=== PATIENT | male | born 1945 | race Caucasian/White ===

== ENCOUNTER 2023-10-06 02:33 | Inpatient (IN) | payer BC, MEDICAID ==
[2023-10-06] VITALS (17 sets, daily range): BP systolic 123–140; BP diastolic 71–90; PULSE 76–100; RESP 12–20; TEMP 96.8–98; O2SAT 90–99
[~2023-10-06] VITALS: Ht 177.8 cm; Wt 62.2 kg
[2023-10-06] MEDS: ipratropium/albuterol 3ml nebule NEB SCH (01:00)
[2023-10-06] MEDS ORDERED: heparin 10,000 units/1 ML INJ IV PRN (02:45)
[2023-10-06] MEDS ORDERED: heparin 25,000 UNIT/250ml bag 250 ML IV PRN (02:45)
[2023-10-06 03:15] LABS: ABG BASE EXCESS -8.4 mmol/L (-2.0-2.0); ABG HCO3 17.1 mmol/L (22.0-26.0); ABG OXYGEN SATURATION 98.7 % (94-97); ABG PCO2 (T) 35.5 mmHg (35.0-48.0); ABG PH (T) 7.299 (7.340-7.440); ABG PO2 (T) 159.7 mmHg (75.0-100.0); ALLEN'S TEST POSITIVE; FCOHb 0.5 % (0.0-3.9); FHHb 1.3 % (0.0-5.0); FMetHb 0.4 % (0.0-1.5); FO2Hb 97.8 % (94-97); PATIENT TEMPERATURE 36.7; RESPIRATORY RATE 15 b/min; TOTAL HEMOGLOBIN 16.1 G/dl (14.0-17.9)
[2023-10-06 03:53] LABS: BASOPHILS % (AUTO) 0.6 % (0-1); EOSINOPHILS % (AUTO) 0.1 % (0-6); HEMATOCRIT 47.7 % (42.0-52.0); HEMOGLOBIN 15.6 g/dl (14.0-17.9); LYMPHOCYTES # (AUTO) 0.2 X10'3 (1.1-4.8); LYMPHOCYTES % (AUTO) 4.5 % (21-51); MEAN CORPUSCULAR HEMOGLOBIN 34.2 PG (27.0-31.0); MEAN CORPUSCULAR HGB CONC 32.6 g/dL (33.0-36.5); MEAN CORPUSCULAR VOLUME 105.1 FL (78-98); MEAN PLATELET VOLUME 9.2 FL (7.4-10.4); MONOCYTES # (AUTO) 0.4 X10'3 (0-0.9); MONOCYTES % (AUTO) 7.7 % (2-12); NEUTROPHILS # (AUTO) 4.4 X10'3 (1.8-7.7); NEUTROPHILS % (AUTO) 87.1 % (42-75); PLATELET COUNT 64 X10'3 (140-440); RED BLOOD COUNT 4.54 X10'6 (4.70-6.10); RED CELL DISTRIBUTION WIDTH 16.8 % (11.5-14.5); WHITE BLOOD COUNT 5.1 X10'3 (4.5-11.0)
[2023-10-06] MEDS ORDERED: albuterol 2.5 MG/3 ML nebule NEB PRN (04:05)
[2023-10-06] MEDS ORDERED: acetaminophen 325mg tablet PO PRN ×2 (04:05)
[2023-10-06] MEDS ORDERED: morphine 4 MG/ML inj SYRINge IV PRN (04:05)
[2023-10-06] MEDS ORDERED: morphine 2 MG/ML inj. syringe IV PRN (04:05)
[2023-10-06] MEDS ORDERED: ondansetron/PF 4mg/2ml inj IV PRN (04:05)
[2023-10-06] MEDS ORDERED: ipratropium/albuterol 3ml nebule NEB PRN (04:05)
[2023-10-06 04:17] LABS: ALBUMIN 3.2 G/DL (3.4-5.0); ALBUMIN/GLOBULIN RATIO 0.9 (1.1-1.5); ALKALINE PHOSPHATASE 188 IU/L (46-116); ANION GAP 13 (8-16); BILIRUBIN,TOTAL 2.4 MG/DL (0.1-1.0); BLOOD UREA NITROGEN 71 MG/DL (7-18); BUN/CREATININE RATIO 36.6 (10.0-20.0); CALCIUM 8.4 MG/DL (8.5-10.1); CHLORIDE 101 MMOL/L (99-107); CREATININE 1.94 MG/DL (0.60-1.10); GLUCOSE 174 MG/DL (70-104); POTASSIUM 5.1 MMOL/L (3.5-5.1); SODIUM 137 MMOL/L (135-145); TOTAL PROTEIN 6.9 G/DL (6.4-8.2); eCRCL 30 ML/MIN; eGFR 33 ML/MIN
[2023-10-06] MEDS: LidoCAINE 2% Topical Jelly 11mL syringe (UROJET) TOP ONE (04:21)
[2023-10-06 04:32] LABS: BILIRUBIN,URINE NEGATIVE (Neg); CLARITY,URINE SLIGHTLY CLOUDY (Clear); COLOR,URINE YELLOW (Yellow); GLUCOSE, URINE NEGATIVE (Neg); KETONES,URINE NEGATIVE (Neg); LEUKOCYTE ESTERASE ,URINE TRACE (Neg); NITRITES, URINE POSITIVE (Neg); OCCULT BLOOD,URINE MODERATE (Neg); PROTEIN,URINE NEGATIVE (Neg); UROBILINOGEN,URINE 0.2 E.U/dL (0.2-1.0)
[2023-10-06 04:34] LABS: UA COLLECTION TYPE NON-SPECIFIED
[2023-10-06 04:37] LABS: ALANINE AMINOTRANSFERASE 2113 U/L (12-78)
[2023-10-06 04:39] LABS: BACTERIA,URINE FEW /HPF (Neg)
[2023-10-06 04:40] LABS: FINE GRANULAR CAST 0-3 /LPF (NEGATIVE); HYALINE CASTS >30 /LPF (NEGATIVE); MUCUS STRANDS FEW /LPF (Neg); SQUAMOUS EPITHELIAL CELL,UR FEW /LPF (FEW); TRANSITIONAL EPI CELLS,URINE FEW /HPF
[2023-10-06 04:58] LABS: ASPARTATE AMINO TRANSFERASE 2050 U/L (10-37)
[2023-10-06 05:03] LABS: PRO BRAIN NATRIURETIC PEPTIDE > 30000 PG/ML (0-450)
[2023-10-06] MEDS: MESSAGE TO NURSING IV ONE ×3 (06:50→09:06)
[2023-10-06] MEDS: famotidine/PF 10 mg/ml inj IV SCH (08:13)
[2023-10-06] MEDS: PERFLUTREN PROTEIN-A MICROSPHR (Optison) 0.22 MG/ML 3ML VIAL IV ONE (09:06)
[2023-10-06] MEDS: CefTRIAXone/D5W-Rocephin 1gm 50 ML IV SCH (09:45)
[2023-10-06] MEDS ORDERED: ATOR40TA PO (13:09)
[2023-10-06] MEDS ORDERED: PRED5DRO23 RIGHTEYE (13:09)
[2023-10-06] MEDS ORDERED: CARVEDILOL PO (13:09)
[2023-10-06] MEDS ORDERED: FURO-150 PO (13:09)
[2023-10-06] MEDS ORDERED: LISINOPRIL 2.5 MG PO (13:09)
[2023-10-06] MEDS: DOBUTamine-DoBUTrex 500mg/D5W 250 ML IV SCH ×2 (13:45→19:05)
[2023-10-06 16:48] LABS: OSMOLALITY 318 MOSM/K (280-300)
[2023-10-06 16:58] LABS: D-DIMER 25.36 MG/L FEU (0-0.50)
[2023-10-06 17:04] LABS: C-REACTIVE PROTEIN 7.01 MG/DL (0.0-0.5); LIPASE 34 U/L (16-77); MAGNESIUM 2.5 MG/DL (1.5-2.4); PHOSPHORUS 5.2 MG/DL (2.3-4.5)
[2023-10-06 17:05] LABS: CREATINE KINASE 5346 U/L (39-308)
[2023-10-06] MEDS: methylPREDNISolone sod succ 125mg/2ml vial IV SCH (22:52)
[2023-10-06] MEDS: carVEDilol 3.125mg tablet PO SCH (22:52)
[2023-10-07] VITALS (26 sets, daily range): BP systolic 96–136; BP diastolic 61–90; PULSE 78–96; RESP 16–22; TEMP 96.9–98.1; O2SAT 91–98
[2023-10-07] MEDS: azithromycin/NS 500mg/250ml 250 ML IV SCH (08:37)
[2023-10-07] MEDS: famotidine/PF 10 mg/ml inj IV SCH (08:38)
[2023-10-07] MEDS: EMPAGLIFLOZIN 10 MG TABLET PO SCH (08:38)
[2023-10-07] MEDS: aspirin 81mg, enteric-coated 1 TAB TABLET.DR PO SCH (08:38)
[2023-10-07 08:39] LABS: LYMPHOCYTES # (AUTO) 0.1 X10'3 (1.1-4.8); NEUTROPHILS # (AUTO) 6.5 X10'3 (1.8-7.7)
[2023-10-07] MEDS: furosemide 40mg/4ml inj IV SCH (08:39)
[2023-10-07 08:41] LABS: BASOPHILS % (AUTO) 0 % (0-1); EOSINOPHILS % (AUTO) 0.1 % (0-6); HEMATOCRIT 42.1 % (42.0-52.0); LYMPHOCYTES % (AUTO) 1.8 % (21-51); MEAN CORPUSCULAR HEMOGLOBIN 34.1 PG (27.0-31.0); MEAN CORPUSCULAR HGB CONC 33.2 g/dL (33.0-36.5); MEAN CORPUSCULAR VOLUME 102.7 FL (78-98); MEAN PLATELET VOLUME 10.2 FL (7.4-10.4); MONOCYTES # (AUTO) 0.2 X10'3 (0-0.9); MONOCYTES % (AUTO) 2.5 % (2-12); NEUTROPHILS % (AUTO) 95.6 % (42-75); RED CELL DISTRIBUTION WIDTH 16.5 % (11.5-14.5); WHITE BLOOD COUNT 6.9 X10'3 (4.5-11.0)
[2023-10-07 08:50] LABS: ALBUMIN 2.7 G/DL (3.4-5.0); ANION GAP 6 (8-16); BLOOD UREA NITROGEN 65 MG/DL (7-18); BUN/CREATININE RATIO 41.9 (10.0-20.0); CALCIUM 8.3 MG/DL (8.5-10.1); CHLORIDE 104 MMOL/L (99-107); CREATININE 1.55 MG/DL (0.60-1.10); GLUCOSE 137 MG/DL (70-104); POTASSIUM 4.5 MMOL/L (3.5-5.1); SODIUM 138 MMOL/L (135-145); TOTAL CARBON DIOXIDE 27.9 MMOL/L (24-32); eCRCL 33 ML/MIN; eGFR 43 ML/MIN
[2023-10-07 09:00] LABS: PLATELET COUNT 46 X10'3 (140-440)
[2023-10-07 09:48] LABS: ANISOCYTOSIS 1+; PLATELET ESTIMATE DECREASED; TOTAL CELLS COUNTED 100; TOXIC VACUOLATION 1+
[2023-10-07 09:49] LABS: BURR CELLS 1+
[2023-10-07 09:50] LABS: ELLIPTOCYTES FEW
[2023-10-07 14:11] LABS: % IRON SATURATION 30 % (11-46); IRON 62 UG/DL (53-167); TOTAL IRON BINDING CAPACITY 208 UG/DL (259-388)
[2023-10-07 14:20] LABS: FERRITIN 955 NG/ML (26-388); PRO BRAIN NATRIURETIC PEPTIDE > 30000 PG/ML (0-450)
[2023-10-07] MEDS: sodium bicarbonate (8.4%) inj. 50 MEQ in dextrose 5%-water 1,000 ML IV SCH (17:11)
[2023-10-07] MEDS: lactose-reduced food (Ensure Enlive) - 237ml bottle PO SCH (18:00)
[2023-10-08] VITALS (19 sets, daily range): BP systolic 98–126; BP diastolic 66–87; PULSE 78–86; RESP 12–24; TEMP 97.3–98; O2SAT 92–99
[2023-10-08] MEDS: diazepam inj 5 MG/ML inj. IV PRN (02:11)
[2023-10-08 08:55] LABS: EOSINOPHILS % (AUTO) 0 % (0-6); HEMOGLOBIN 13.1 g/dl (14.0-17.9); MONOCYTES # (AUTO) 0.4 X10'3 (0-0.9); WHITE BLOOD COUNT 9.3 X10'3 (4.5-11.0)
[2023-10-08 08:57] LABS: BASOPHILS % (AUTO) 0.2 % (0-1); HEMATOCRIT 39.7 % (42.0-52.0); LYMPHOCYTES # (AUTO) 0.1 X10'3 (1.1-4.8); LYMPHOCYTES % (AUTO) 1.5 % (21-51); MEAN CORPUSCULAR HEMOGLOBIN 34.2 PG (27.0-31.0); MEAN CORPUSCULAR VOLUME 103.7 FL (78-98); MEAN PLATELET VOLUME 8.9 FL (7.4-10.4); NEUTROPHILS # (AUTO) 8.8 X10'3 (1.8-7.7); NEUTROPHILS % (AUTO) 94.3 % (42-75); RED BLOOD COUNT 3.83 X10'6 (4.70-6.10); RED CELL DISTRIBUTION WIDTH 16.4 % (11.5-14.5)
[2023-10-08 09:12] LABS: PLATELET COUNT 32 X10'3 (140-440)
[2023-10-08] MEDS: erythromycin ophthalmic ointment 1gm tube EACHEYE SCH (10:55)
[2023-10-08] MEDS: nicotine 21mg patch - 24 hr TD SCH (15:15)
[2023-10-09] VITALS (17 sets, daily range): BP systolic 101–129; BP diastolic 61–88; PULSE 76–86; RESP 16–25; TEMP 96.2–98.3; O2SAT 90–97
[2023-10-09 07:28] LABS: BASOPHILS % (AUTO) 0.1 % (0-1); EOSINOPHILS % (AUTO) 0 % (0-6); HEMATOCRIT 41.3 % (42.0-52.0); HEMOGLOBIN 13.6 g/dl (14.0-17.9); LYMPHOCYTES # (AUTO) 0.2 X10'3 (1.1-4.8); LYMPHOCYTES % (AUTO) 1.5 % (21-51); MEAN CORPUSCULAR HEMOGLOBIN 34.5 PG (27.0-31.0); MEAN CORPUSCULAR VOLUME 104.5 FL (78-98); MEAN PLATELET VOLUME 9.1 FL (7.4-10.4); MONOCYTES # (AUTO) 0.4 X10'3 (0-0.9); MONOCYTES % (AUTO) 3.5 % (2-12); NEUTROPHILS % (AUTO) 94.9 % (42-75); RED BLOOD COUNT 3.95 X10'6 (4.70-6.10); RED CELL DISTRIBUTION WIDTH 16.4 % (11.5-14.5); WHITE BLOOD COUNT 11.6 X10'3 (4.5-11.0)
[2023-10-09 08:01] LABS: ALBUMIN/GLOBULIN RATIO 0.6 (1.1-1.5); ALKALINE PHOSPHATASE 143 IU/L (46-116); ASPARTATE AMINO TRANSFERASE 416 U/L (10-37); BILIRUBIN,TOTAL 1.3 MG/DL (0.1-1.0); BLOOD UREA NITROGEN 42 MG/DL (7-18); BUN/CREATININE RATIO 43.8 (10.0-20.0); CALCIUM 7.7 MG/DL (8.5-10.1); CREATININE 0.96 MG/DL (0.60-1.10); GLUCOSE 94 MG/DL (70-104); TOTAL CARBON DIOXIDE 25.9 MMOL/L (24-32); TOTAL PROTEIN 5.4 G/DL (6.4-8.2); eCRCL 54 ML/MIN; eGFR 75 ML/MIN
[2023-10-09 08:17] LABS: ANION GAP 6 (8-16); CHLORIDE 102 MMOL/L (99-107); SODIUM 134 MMOL/L (135-145)
[2023-10-09 08:18] LABS: ALANINE AMINOTRANSFERASE 1107 U/L (12-78); POTASSIUM 4.3 MMOL/L (3.5-5.1)
[2023-10-09 08:21] LABS: PLATELET COUNT 26 X10'3 (140-440)
[2023-10-09 10:16] LABS: CREATINE KINASE 752 U/L (39-308)
[2023-10-09 13:47] LABS: D-DIMER 17.45 MG/L FEU (0-0.50); FIBRINOGEN 67 MG/DL (177-424)
[2023-10-09] MEDS: furosemide 40mg/4ml inj IV ONE (18:12)
[2023-10-09 18:14] LABS: ABSOLUTE RETICS # 56700 /CUMM (23000-93000); RETICULOCYTE % (AUTO) 1.4 % (0.5-1.5)
[2023-10-09 19:01] LABS: HIV ANTIBODY 1&2 RAPID NON-REACTIVE (Neg)
[2023-10-09] MEDS: furosemide 20 MG/2 ML vial IV ONE (20:20)
[2023-10-10] VITALS (21 sets, daily range): BP systolic 99–131; BP diastolic 58–85; PULSE 73–93; RESP 12–24; TEMP 97.4–98.2; O2SAT 91–99
[2023-10-10 08:57] LABS: BASOPHILS % (AUTO) 0.1 % (0-1); EOSINOPHILS % (AUTO) 0 % (0-6); HEMATOCRIT 39.7 % (42.0-52.0); HEMOGLOBIN 13.2 g/dl (14.0-17.9); LYMPHOCYTES # (AUTO) 0.1 X10'3 (1.1-4.8); MEAN CORPUSCULAR HEMOGLOBIN 34.1 PG (27.0-31.0); MEAN CORPUSCULAR HGB CONC 33.2 g/dL (33.0-36.5); MEAN CORPUSCULAR VOLUME 102.7 FL (78-98); MEAN PLATELET VOLUME 9.8 FL (7.4-10.4); MONOCYTES # (AUTO) 0.4 X10'3 (0-0.9); MONOCYTES % (AUTO) 3.4 % (2-12); NEUTROPHILS # (AUTO) 11.4 X10'3 (1.8-7.7); NEUTROPHILS % (AUTO) 95.5 % (42-75); RED BLOOD COUNT 3.86 X10'6 (4.70-6.10); RED CELL DISTRIBUTION WIDTH 16.4 % (11.5-14.5); WHITE BLOOD COUNT 11.9 X10'3 (4.5-11.0)
[2023-10-10 09:00] LABS: PLATELET COUNT 33 X10'3 (140-440)
[2023-10-10 09:27] LABS: ALANINE AMINOTRANSFERASE 947 U/L (12-78); ALBUMIN 2.3 G/DL (3.4-5.0); ALBUMIN/GLOBULIN RATIO 0.7 (1.1-1.5); ALKALINE PHOSPHATASE 169 IU/L (46-116); ANION GAP 3 (8-16); ASPARTATE AMINO TRANSFERASE 297 U/L (10-37); BILIRUBIN,TOTAL 1.1 MG/DL (0.1-1.0); BLOOD UREA NITROGEN 42 MG/DL (7-18); BUN/CREATININE RATIO 37.8 (10.0-20.0); CALCIUM 8.1 MG/DL (8.5-10.1); CHLORIDE 103 MMOL/L (99-107); CREATININE 1.11 MG/DL (0.60-1.10); GLUCOSE 109 MG/DL (70-104); POTASSIUM 4.3 MMOL/L (3.5-5.1); PRO BRAIN NATRIURETIC PEPTIDE 15177 PG/ML (0-450); SODIUM 138 MMOL/L (135-145); TOTAL CARBON DIOXIDE 31.7 MMOL/L (24-32); TOTAL PROTEIN 5.4 G/DL (6.4-8.2); eCRCL 47 ML/MIN; eGFR 64 ML/MIN
[2023-10-10 09:34] LABS: ANISOCYTOSIS 1+; PLATELET ESTIMATE DECREASED
[2023-10-10] MEDS: magnesium hydroxide 30ml (MOM) UD suspension PO PRN (09:53)
[2023-10-10] MEDS: furosemide 20 MG/2 ML vial IV SCH (09:54)
[2023-10-10] MEDS: famotidine 20mg tablet PO SCH (09:54)
[2023-10-10 19:16] LABS: HEP A AB, IGM Negative (Negative); HEP B CORE AB, IGM Negative (Negative); HEP B CORE AB, TOT Negative (Negative); HEPATITIS C VIRUS ANTIBODY Non Reactive (Non Reactive)
[2023-10-11] VITALS (19 sets, daily range): BP systolic 120–140; BP diastolic 70–91; PULSE 82–96; RESP 16–24; TEMP 97.3–98.5; O2SAT 92–98
[2023-10-11 19:39] LABS: BASOPHILS % (AUTO) 0.2 % (0-1); EOSINOPHILS % (AUTO) 0 % (0-6); HEMATOCRIT 44.1 % (42.0-52.0); HEMOGLOBIN 14.4 g/dl (14.0-17.9); LYMPHOCYTES # (AUTO) 0.1 X10'3 (1.1-4.8); LYMPHOCYTES % (AUTO) 1.1 % (21-51); MEAN CORPUSCULAR HEMOGLOBIN 34.2 PG (27.0-31.0); MEAN CORPUSCULAR HGB CONC 32.7 g/dL (33.0-36.5); MEAN CORPUSCULAR VOLUME 104.5 FL (78-98); MEAN PLATELET VOLUME 9.9 FL (7.4-10.4); MONOCYTES # (AUTO) 0.5 X10'3 (0-0.9); MONOCYTES % (AUTO) 3.5 % (2-12); NEUTROPHILS # (AUTO) 13.2 X10'3 (1.8-7.7); NEUTROPHILS % (AUTO) 95.2 % (42-75); RED BLOOD COUNT 4.22 X10'6 (4.70-6.10); RED CELL DISTRIBUTION WIDTH 16.5 % (11.5-14.5); WHITE BLOOD COUNT 13.8 X10'3 (4.5-11.0)
[2023-10-11 19:44] LABS: PLATELET COUNT 40 X10'3 (140-440)
[2023-10-11 19:48] LABS: INR 1.3 INR; PROTHROMBIN TIME 13.6 SECONDS (9.0-12.0)
[2023-10-11 19:58] LABS: ALANINE AMINOTRANSFERASE 783 U/L (12-78); ALBUMIN 2.6 G/DL (3.4-5.0); ALBUMIN/GLOBULIN RATIO 0.8 (1.1-1.5); ALKALINE PHOSPHATASE 165 IU/L (46-116); ANION GAP 5 (8-16); ASPARTATE AMINO TRANSFERASE 161 U/L (10-37); BLOOD UREA NITROGEN 47 MG/DL (7-18); BUN/CREATININE RATIO 46.5 (10.0-20.0); CALCIUM 8.6 MG/DL (8.5-10.1); CHLORIDE 102 MMOL/L (99-107); CREATININE 1.01 MG/DL (0.60-1.10); GLUCOSE 135 MG/DL (70-104); MAGNESIUM 2.6 MG/DL (1.5-2.4); PHOSPHORUS 1.9 MG/DL (2.3-4.5); POTASSIUM 4.5 MMOL/L (3.5-5.1); SODIUM 142 MMOL/L (135-145); eCRCL 51 ML/MIN; eGFR 71 ML/MIN
[2023-10-11] MEDS: docusate sod 100mg capsule PO ONE (20:30)
[2023-10-11] MEDS: sennosides/docusate sodium tablet PO ONE (20:30)
[2023-10-12] VITALS (21 sets, daily range): BP systolic 127–140; BP diastolic 70–94; PULSE 83–98; RESP 15–26; TEMP 97.4–98.2; O2SAT 91–99
[2023-10-12 05:57] LABS: BASOPHILS % (AUTO) 0.1 % (0-1); EOSINOPHILS % (AUTO) 0 % (0-6); HEMATOCRIT 40.3 % (42.0-52.0); HEMOGLOBIN 13.4 g/dl (14.0-17.9); LYMPHOCYTES # (AUTO) 0.2 X10'3 (1.1-4.8); LYMPHOCYTES % (AUTO) 1.5 % (21-51); MEAN CORPUSCULAR HEMOGLOBIN 34.5 PG (27.0-31.0); MEAN CORPUSCULAR HGB CONC 33.3 g/dL (33.0-36.5); MEAN CORPUSCULAR VOLUME 103.5 FL (78-98); MEAN PLATELET VOLUME 10.2 FL (7.4-10.4); MONOCYTES # (AUTO) 0.8 X10'3 (0-0.9); MONOCYTES % (AUTO) 6.7 % (2-12); NEUTROPHILS # (AUTO) 10.6 X10'3 (1.8-7.7); NEUTROPHILS % (AUTO) 91.7 % (42-75); RED BLOOD COUNT 3.89 X10'6 (4.70-6.10); WHITE BLOOD COUNT 11.5 X10'3 (4.5-11.0)
[2023-10-12 06:01] LABS: PLATELET COUNT 42 X10'3 (140-440)
[2023-10-12 06:15] LABS: ALANINE AMINOTRANSFERASE 667 U/L (12-78); ALBUMIN 2.3 G/DL (3.4-5.0); ALBUMIN/GLOBULIN RATIO 0.7 (1.1-1.5); ALKALINE PHOSPHATASE 172 IU/L (46-116); ANION GAP 1 (8-16); ASPARTATE AMINO TRANSFERASE 130 U/L (10-37); BILIRUBIN,TOTAL 1.1 MG/DL (0.1-1.0); BLOOD UREA NITROGEN 49 MG/DL (7-18); BUN/CREATININE RATIO 49.5 (10.0-20.0); CALCIUM 8.4 MG/DL (8.5-10.1); CHLORIDE 103 MMOL/L (99-107); CREATININE 0.99 MG/DL (0.60-1.10); GLUCOSE 120 MG/DL (70-104); POTASSIUM 4.3 MMOL/L (3.5-5.1); SODIUM 140 MMOL/L (135-145); TOTAL CARBON DIOXIDE 35.8 MMOL/L (24-32); TOTAL PROTEIN 5.4 G/DL (6.4-8.2); eCRCL 52 ML/MIN; eGFR 73 ML/MIN
[2023-10-12] MEDS: losartan 25mg tablet PO SCH (16:14)
[2023-10-12] MEDS ORDERED: carVEDilol 3.125mg tablet PO SCH (20:00)
[2023-10-12] MEDS: sennosides/docusate sodium tablet PO ONE (20:51)
[2023-10-12] MEDS: docusate sod 100mg capsule PO ONE (20:51)
[2023-10-13] VITALS (9 sets, daily range): BP systolic 130–160; BP diastolic 77–94; PULSE 79–94; RESP 16–20; TEMP 97.5; O2SAT 96–97
[2023-10-13 06:27] LABS: BASOPHILS % (AUTO) 0.1 % (0-1); EOSINOPHILS # (AUTO) 0.1 X10'3 (0-0.9); EOSINOPHILS % (AUTO) 0.9 % (0-6); HEMATOCRIT 44.4 % (42.0-52.0); HEMOGLOBIN 14.8 g/dl (14.0-17.9); LYMPHOCYTES # (AUTO) 0.5 X10'3 (1.1-4.8); LYMPHOCYTES % (AUTO) 7.5 % (21-51); MEAN CORPUSCULAR HEMOGLOBIN 34.8 PG (27.0-31.0); MEAN CORPUSCULAR HGB CONC 33.3 g/dL (33.0-36.5); MEAN CORPUSCULAR VOLUME 104.3 FL (78-98); MEAN PLATELET VOLUME 9.4 FL (7.4-10.4); MONOCYTES # (AUTO) 0.4 X10'3 (0-0.9); MONOCYTES % (AUTO) 5.8 % (2-12); NEUTROPHILS # (AUTO) 6.1 X10'3 (1.8-7.7); NEUTROPHILS % (AUTO) 85.7 % (42-75); RED BLOOD COUNT 4.26 X10'6 (4.70-6.10); RED CELL DISTRIBUTION WIDTH 17.4 % (11.5-14.5); WHITE BLOOD COUNT 7.1 X10'3 (4.5-11.0)
[2023-10-13 06:35] LABS: PLATELET COUNT 42 X10'3 (140-440)
[2023-10-13 06:43] LABS: ALANINE AMINOTRANSFERASE 541 U/L (12-78); ALBUMIN 2.3 G/DL (3.4-5.0); ALBUMIN/GLOBULIN RATIO 0.7 (1.1-1.5); ALKALINE PHOSPHATASE 136 IU/L (46-116); ANION GAP 4 (8-16); ASPARTATE AMINO TRANSFERASE 107 U/L (10-37); BILIRUBIN,TOTAL 1.5 MG/DL (0.1-1.0); BLOOD UREA NITROGEN 41 MG/DL (7-18); BUN/CREATININE RATIO 46.1 (10.0-20.0); CALCIUM 8.2 MG/DL (8.5-10.1); CHLORIDE 103 MMOL/L (99-107); CREATININE 0.89 MG/DL (0.60-1.10); GLUCOSE 79 MG/DL (70-104); POTASSIUM 4.3 MMOL/L (3.5-5.1); PRO BRAIN NATRIURETIC PEPTIDE 16235 PG/ML (0-450); SODIUM 140 MMOL/L (135-145); TOTAL CARBON DIOXIDE 33.1 MMOL/L (24-32); TOTAL PROTEIN 5.4 G/DL (6.4-8.2); eCRCL 58 ML/MIN; eGFR 82 ML/MIN
[2023-10-13 07:09] LABS: ANISOCYTOSIS 1+; PLATELET ESTIMATE DECREASED
[2023-10-13 07:10] LABS: ELLIPTOCYTES FEW; SCHISTOCYTES FEW
[2023-10-13] MEDS: spironolactone 25 MG tablet PO SCH (08:30)
[2023-10-13] MEDS: bisacodyl 10mg suppository rectal RC STA (11:48)
== END 2023-10-13 18:06 | DRG 871 ==
LOC: ER 02:34 → ED HOLD 04:12 → CICU 2S 05:52 → PCU 3S 13:32
PROVIDERS: ADMIT Surgery; ATTEND Surgery
PROC: 5A09357 Assistance with Respiratory Ventilation, Less than 24 Consecutive Hours, Continuous Positive Airway Pressure (ICD-10-PCS; 2023-10-06)
PROC: CB121ZZ Planar Nuclear Medicine Imaging of Lungs and Bronchi using Technetium 99m (Tc-99m) (ICD-10-PCS; principal; 2023-10-09)
PROC: 05HB33Z Insertion of Infusion Device into Right Basilic Vein, Percutaneous Approach (ICD-10-PCS; 2023-10-10)
DX: A41.9 Sepsis, unspecified organism (principal); G93.41 Metabolic encephalopathy; I21.A1 Myocardial infarction type 2; I50.23 Acute on chronic systolic (congestive) heart failure; J96.01 Acute respiratory failure with hypoxia; K72.00 Acute and subacute hepatic failure without coma; J44.1 Chronic obstructive pulmonary disease with (acute) exacerbation; E87.20 Acidosis, unspecified; N39.0 Urinary tract infection, site not specified; N17.9 Acute kidney failure, unspecified; D68.9 Coagulation defect, unspecified; I42.0 Dilated cardiomyopathy; E87.5 Hyperkalemia; D69.6 Thrombocytopenia, unspecified; K76.0 Fatty (change of) liver, not elsewhere classified; F17.200 Nicotine dependence, unspecified, uncomplicated; I25.10 Atherosclerotic heart disease of native coronary artery without angina pectoris; E78.5 Hyperlipidemia, unspecified; I27.20 Pulmonary hypertension, unspecified; N18.9 Chronic kidney disease, unspecified; Z95.0 Presence of cardiac pacemaker; Z95.1 Presence of aortocoronary bypass graft; Z87.440 Personal history of urinary (tract) infections
CPT/HCPCS: 36410; 36415; 36600; 71045; 74176; 76700; 76937; 78582; 80048; 80053; 81001; 82140; 82390; 82550; 82607; 82728; 82803; 82948; 83010; 83540; 83550; 83605; 83615; 83690; 83735; 83880; 83930; 84100; 84466; 84484; 85007; 85008; 85018; 85025; 85045; 85379; 85384; 85610; 85651; 85730; 86140; 86703; 86704; 86705; 86709; 86803; 87077; 87088; 87186; 87522; 93005; 93306; 93970; 94640; 94660; 94760; 97110; 97116; 97162; 97530; 97535; 99285; A4314; A4615; A5200; A6213; A6455; A9539; A9540; C1751; G0378; J0456; J0696; J1250; J1940; J2930; J3360; J3490; J7030; J7040; J7070